=== PATIENT | male | born 1970 | race Caucasian/White ===

== ENCOUNTER 2022-09-01 14:39 | Emergency (ER) | payer OTHER, SELFPAY ==
[2022-09-01 14:51] VITALS: BP 133/79; PULSE 67; RESP 16; TEMP 36.6; O2SAT 100
--- NOTE | 2022-09-01 15:04 | ED.WOUNDLAC ---
HPI - Wound/Laceration General Chief Complaint: Wound/Laceration Stated Complaint: Stitch Removal Lt Eyebrow Time Seen by Provider: 09/01/22 14:54 Source: patient and RN notes reviewed Mode of arrival: ambulatory Limitations: no limitations History of Present Illness HPI narrative: Patient presents today for suture removal. States he had 10 sutures placed to the left eyebrow approximately 1 week ago in the ER at [facility] after falling. He lost consciousness after donating blood. States the laceration has been healing well without signs of infection. Related Data Home Medications Medication Instructions Recorded Confirmed felodipine 10 mg tablet,extended 10 mg PO DAILY 09/01/22 09/01/22 release 24 hr lisinopril 20 mg tablet 20 mg PO DAILY 09/01/22 09/01/22 Allergies Allergy/AdvReac Type Severity Reaction Status Date / Time No Known Allergies Allergy Verified 09/01/22 14:45 Review of Systems Review of Systems: CONSTITUTIONAL: Denies body aches, fever, chills, or sweats. EYES: Denies visual changes, redness, or discharge. ENT: Denies rhinorrhea, congestion, sore throat, or otalgia. CARDIOVASCULAR: Denies chest pain, palpitations, or edema. RESPIRATORY: Denies cough or dyspnea. GASTROINTESTINAL: Denies abdominal pain, nausea, vomiting, or diarrhea. GENITOURINARY: Denies dysuria or hematuria. SKIN: Denies rash, itching, or wounds.+ laceration to left eyebrow MUSCULOSKELETAL: Denies back pain, joint pain, or myalgia. NEUROLOGIC: Denies headache, numbness, tingling, or weakness. PSYCH: Denies depression or anxiety. PMFSH Comments At time of signature, I have reviewed and agree with nursing past medical, surgical, social and family history unless otherwise noted. Please see nursing chart for further information. There is no relevant family history pertinent to the presenting complaint Exam Narrative: GENERAL: Well-appearing, well-nourished, and in no acute distress. HEAD: Normocephalic. + healing laceration to left eyebrow. Seven sutures noted intact. No signs of infection noted. EYES: EOMI. No redness or drainage. Conjunctivae normal. ENT: Mucous membranes pink and moist. NECK: Normal AROM. CHEST: No respiratory distress. EXTREMITIES: Normal range of motion. No edema. SKIN: Warm, dry, no rash. Capillary refill normal. Normal skin turgor. NEURO: No focal deficits. Alert and oriented x3. Gait steady. PSYCH: Normal affect. No signs of depression or anxiety. Course Course Level of Care: Express Care Visit Vital Signs Vital signs: Vital Signs Temperature 97.8 F 09/01/22 14:51 Pulse Rate 67 09/01/22 14:51 Respiratory Rate 16 09/01/22 14:51 Blood Pressure 133/79 09/01/22 14:51 Pulse Oximetry 100 09/01/22 14:51 Oxygen Delivery Room Air 09/01/22 14:51 Temperature 97.8 F 09/01/22 14:51 Pulse Rate 67 09/01/22 14:51 Respiratory Rate 16 09/01/22 14:51 Blood Pressure 133/79 09/01/22 14:51 Pulse Oximetry 100 09/01/22 14:51 Oxygen Delivery Room Air 09/01/22 14:51 Reviewed. Pt has been instructed to follow up with his PCP regarding his elevated blood pressure today. MDM - Wound/Laceration MDM Narrative Medical decision making narrative: 7 sutures removed from the healing laceration. Wound healing well. No prescription medications indicated at this time. Anticipatory guidance given. Critical Care Time Critical Care Time Critical Care Time: No Discharge Plan Discharge Clinical Impression: Visit for suture removal Patient Disposition: Home, Self-Care Condition: Stable Instructions: Stitches Removal (ED) Additional Instructions: Your sutures have been removed. Your laceration will heal up fully with time. Continue to wash with soap and water daily. Follow-up with your PCP with any concerns. Your blood pressure was elevated above 120/80 today at Urgent Care. This puts you above the threshold for follow up.
== END 2022-09-01 15:07 | disposition home or self-care (01) ==
PROVIDERS: Emergency Provider Nurse Practitioner
DX: S01.112D Laceration without foreign body of left eyelid and periocular area, subsequent encounter (principal); W19.XXXD Unspecified fall, subsequent encounter; E78.00 Pure hypercholesterolemia, unspecified; I10 Essential (primary) hypertension
CPT/HCPCS: 99211; G0463

== ENCOUNTER 2023-03-23 14:28 | Emergency (ER) | payer OTHER, SELFPAY ==
--- NOTE | 2023-03-23 14:48 | ED.URI ---
HPI - URI/Sore Throat General Chief Complaint: Upper Respiratory Infection Stated Complaint: congesting,sore throat Time Seen by Provider: 03/23/23 14:48 Source: patient Mode of arrival: ambulatory Limitations: no limitations History of Present Illness HPI Narrative: 52-year-old male presents with complaint of nasal congestion, sore throat, cough for the last week. Taking [id number] cough medication with no relief of symptoms. Afebrile. Reports today having some chills, body aches. States worst of his symptom is sore throat. All systems reviewed and negative except as noted above. Related Data Home Medications Medication Instructions Recorded Confirmed felodipine 10 mg tablet,extended 10 mg PO DAILY 09/01/22 03/23/23 release 24 hr lisinopril 20 mg tablet 20 mg PO DAILY 09/01/22 03/23/23 Allergies Allergy/AdvReac Type Severity Reaction Status Date / Time No Known Allergies Allergy Verified 03/23/23 14:50 Review of Systems Review of Systems: CONSTITUTIONAL: Denies fever, chills, or sweats. EYES: Denies visual changes, redness, or discharge. ENT: Reports rhinorrhea, congestion, sore throat. Denies otalgia. CARDIOVASCULAR: Denies chest pain, palpitations, or edema. RESPIRATORY: reports cough. Denies dyspnea. GASTROINTESTINAL: Denies abdominal pain, nausea, vomiting, or diarrhea. GENITOURINARY: Denies dysuria or hematuria. SKIN: Denies rash or itching. MUSCULOSKELETAL: Denies back pain, joint pain, or myalgia. NEUROLOGIC: Denies headache, numbness, or weakness. PSYCHIATRIC: Denies anxiety or depression. All other systems reviewed are negative, except as documented in HPI. PMFSH Comments At time of signature, agree with nursing past medical, surgical, social and family history. There is no relevant family history pertinent to the presenting complaint. Exam Narrative: GENERAL: This is a well-nourished, well-developed patient, in no apparent distress. HEAD: normocephalic, atraumatic. EYES: PERRL. Sclera clear/white. Vision is grossly intact. EARS: External ears normal, auditory canals clear and without drainage, TMs normal without perforation. Hearing grossly intact. NOSE: External nose normal with regular nasal drainage with erythema and swelling to bilateral nares. Bilateral maxillary sinus tenderness on palpation. THROAT: Mucous membranes moist, Moderate amount of postnasal drainage with erythema to posterior pharynx. No tonsillar swelling or exudates. NECK: Neck supple, non-tender without lymphadenopathy, masses or thyromegaly. CARDIOVASCULAR: Regular rate and rhythm without murmurs, gallops, or rubs. RESPIRATORY: Clear to auscultation. Breath sounds equal bilaterally. No wheezes, rales, or rhonchi. SKIN: warm, Dry, intact with no suspicious lesions or rash, good texture and turgor. NEURO: awake, alert, and oriented to person, place and time. There were no obvious focal neurologic abnormalities. EXTREMITIES: No joint tenderness, effusion, or edema noted. Course Course Level of Care: Express Care Visit Vital Signs Vital signs: Vital Signs Temperature 36.9 C 03/23/23 15:04 Pulse Rate 61 03/23/23 15:04 Respiratory Rate 18 03/23/23 15:04 Blood Pressure 151/97 H 03/23/23 15:04 Pulse Oximetry 99 03/23/23 15:04 Oxygen Delivery Room Air 03/23/23 15:04 Temperature 36.9 C 03/23/23 15:04 Pulse Rate 61 03/23/23 15:04 Respiratory Rate 18 03/23/23 15:04 Blood Pressure 151/97 H 03/23/23 15:04 Pulse Oximetry 99 03/23/23 15:04 Oxygen Delivery Room Air 03/23/23 15:04 Reviewed MDM - URI/Sore Throat MDM Narrative Medical decision making narrative: will treat patient with antibiotic due to duration of symptoms and exam findings. Patient agrees with plan of care. Patient is aware of diagnosis, understands and agrees to treatment plan. Anticipatory guidance given. Patient agrees to follow-up as directed and is aware of reasons to seek ca
[2023-03-23 15:04] VITALS: BP 151/97; PULSE 61; RESP 18; TEMP 36.9; O2SAT 99
== END 2023-03-23 15:23 | disposition home or self-care (01) ==
PROVIDERS: Emergency Provider Nurse Practitioner Family
DX: J01.90 Acute sinusitis, unspecified (principal); B96.89 Other specified bacterial agents as the cause of diseases classified elsewhere; Z79.899 Other long term (current) drug therapy
CPT/HCPCS: 87081; 87880; 99213; G0463